=== PATIENT | female | born 1965 | race Caucasian/White ===

== ENCOUNTER 2016-06-11 11:30 | Emergency (ER) | payer MEDICARE | END 2016-06-11 13:07 | disposition home or self-care (01) | LOC: D.ER 11:30 | DX: S92.332A Displaced fracture of third metatarsal bone, left foot, initial encounter for closed fracture (principal); W19.XXXA Unspecified fall, initial encounter; Y93.89 Activity, other specified; Y92.019 Unspecified place in single-family (private) house as the place of occurrence of the external cause; I10 Essential (primary) hypertension ==

== ENCOUNTER → 2016-07-29 08:58 | Outpatient (CLI) | payer MEDICARE | END | disposition home or self-care (01) | LOC: D.RAD 08:58 | DX: R12 Heartburn (principal) ==